=== PATIENT | male | born 1955 | race Caucasian/White ===

== ENCOUNTER 2016-11-01 22:33 | Observation (INO) ==
[2016-11-01 23:39] LABS: Basophils # 0.1 10*3/uL (0.0-0.2); Basophils % 0.6 % (0.0-0.8); Eosinophils # 0.2 10*3/uL (0.0-0.87); Hematocrit 38.5 VOL% (42.0-52.0); Hemoglobin 13.1 GM/DL (14.0-18.0); Immature Granulocytes % 0.5 %; Immature Granulocytes Absolute 0.05 #; Lymphocytes # 2.2 10*3/uL (1.4-4.0); Lymphocytes % 20.7 % (21.2-54.2); Mean Corpuscular Hemoglobin 27 PG (27-34); Mean Corpuscular Volume 79.5 FL (87-102); Mean Platelet Volume 10.4 FL (9.6-12.0); Monocytes # 0.8 10*3/uL (0.11-0.8); Neutrophils # 7.2 10*3/uL (1.4-7.4); Neutrophils % 68.2 % (38.7-73.9); Platelet Count 235 T/CUMM (130-400); Red Blood Count 4.84 MC/CUMM (3.8-5.5); Red Cell Distribution Width 15.9 % (9.3-17.3); White Blood Count 10.6 T/CUMM (4-12)
[2016-11-01 23:48] LABS: D-Dimer <= 0.5 MG/L FEU; PT Patient Result 10.4 SECS; Partial Thromboplastin Time 28.3 SECS (0-40)
[2016-11-01 23:54] LABS: Albumin 3.8 G/DL (3.4-5.0); Bilirubin,Total 0.5 MG/DL (0.2-1.0); CKMB % 1.1 %; Calcium 9.8 MG/DL (8.5-10.1); Magnesium 2.2 MG/DL (1.8-2.4); Osmolality,Calculated 289.8 MOS/KG (273-304); Total Protein 7.3 G/DL (6.4-8.3)
[2016-11-01 23:55] LABS: Troponin I Only 0.053 NG/ML (0.00-0.045)
--- NOTE | 2016-11-02 01:29 | Emergency Department Note ---
Arrival - Arrival Chief Complaint: Chest Pain Stated Complaint: chest pain ED Nursing Triage Note: C/C constant pain in left arm, sob, feels like heart is racing. Mode of Arrival: Ambulatory Source: Patient Time Seen by Provider: 11/01/16 23:08 - History of Present Illness HPI Narrative: Patient is a poor historian and has difficulty describing his symptoms. Around 930 tonight he started feeling like his heart was racing. He initially said that he felt short of breath, then said he did not feel short of breath, just anxious or panicked. He said he had chest pain then says it was not pain just a tight feeling or his heart racing. He did have some pain in his left shoulder. No nausea, vomiting or diaphoresis. All of this seemed to come and go. It is not clear how long the episodes last. He was asymptomatic when I saw him. The patient has a history of [place] 12-13 years ago. He had a cath at that time but did not get a stent. He had a nuclear stress test 1 year ago which he says was okay. He has a history of hypertension. 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 Allergies/Adverse Reactions: Allergies Allergy/AdvReac Type Severity Reaction Status Date / Time No Known Allergies Allergy Verified 11/01/16 22:52 Home Medications: Home Medications Medication Instructions Recorded Confirmed Type Amlodipine/Atorvastatin 1 each PO DAILY 12/21/15 02/17/16 History [Amlodipine-Atorvast 5-40 mg] Olmesartan/Hydrochlorothiazide 1 each PO DAILY 12/21/15 02/17/16 History [Benicar Hct 40-12.5 mg Tablet] Finasteride 5 mg PO DAILY 01/09/16 02/17/16 History Review of System - Review of System 12 point system: reviewed and no additional remarkable complaints except as stated - Review of System Constitutional: Absent: fever, weakness Head/Ears/Nose/Throat: Absent: nasal drainage Respiratory: Absent: cough Cardiovascular: Present: chest pain, palpitations. Absent: dyspnea on exertion , orthopnea, edema, syncope Gastrointestinal: Absent: abdominal pain, nausea, vomiting Musculoskeletal: Present: arm pain Medical,Surgical,& Family Hx - Medical History Cardio: History of: Hypertension, [place] (2001) Comment Only: Cardiovascular Problems (Dr. Jerez) HEENT: History of: Eye Problem Comment Only: Ear Problem (glasses) Genitourinary: History of: Prostate Problems (Metastatic prostate cancer.) Musculoskeletal: History of: Amputation, Back/Neck Problems (anklosisspondylysis ), Musculoskeletal Problems (arthritis) Other: History of: Cancer (Bone) - Surgical History Cardiac Surgeries: Sugical HX of: Cardiac Catheterization (12 or 13 years ago) Reproductive Surgeries: Surgical HX of;: Prostate Surgery, Vasectomy Orthopedic Surgeries: Surgical HX of;: Orthopedic Surgery (fusion) - Family History Family History: Reports;: Family Cancer, Family Hypertension Denies;: Family Anesthesia Reaction, Family Diabetes, Family Heart Disease, Family Psychiatric Problems, Family Stroke - Social History Smoking Status: Current every day smoker Frequency of Alcohol Use: Occasionally Type of Drug Use: None Exam Physical Examination: GENERAL: Alert. No acute distress. HEENT: Normocephalic and atraumatic. There is no nasal drainage. No pharyngeal erythema or exudate. NECK: Normal inspection. Supple. No lymphadenopathy or meningismus. LUNGS: No respiratory distress. Clear to auscultation bilaterally, no wheezes, rales or rhonchi. HEART: Regular rate and rhythm. ABDOMEN: Soft, nontender and nondistended with normoactive bowel sounds. BACK: Normal inspection. SKIN: Color normal. Warm and dry. EXTREMITIES: Nontender. Normal range of motion. No pedal edema. NEUROLOGICAL/PSYCHIATRIC: Alert and oriented -3 with normal mood and affect. Cranial nerves normal. No motor or sensory deficit. Vital Signs: Vital Signs Temperature 98.3 F 11/01/16 22:46 Pulse Rate 99 H 11/01/16 22:46 Respiratory Rate 18 11/01/16 23:27 Blood Pressure 189/96 11/01/16 22:46 O2 Sat by Pulse Oximetry 96 11/01/16 22:46 Course - Reevaluation(s) Reevaluation #1: Patient has remained stable in the ER and has been asymptomatic here. I suspect his symptoms are more anxiety related than cardiac, but he does have a history of [place] and cardiac risk factors. He will need to be admitted for observation and serial enzymes. I discussed patient with Dr. Shannan Post and will admit to Dr. Matta. Time: 01:40 Results - Labs CBC & BMP: 11/01/16 23:11 11/01/16 23:11 Lab Results: I have reviewed the patients labs Labs: Laboratory Tests 11/01/16 11/01/16 11/01/16 23:11 23:11 23:11 INR 1.0 D-Dimer, Quantitative <= 0.5 Total Bilirubin 0.50 AST 27 ALT 34 Alkaline Phosphatase 110 Total Creatine Kinase 492 H CK-MB (CK-2) 5.3 H CK and CKMB Interp 1.1 Troponin I 0.053 H B-Natriuretic Peptide < 2 L - Impressions Chest x-ray shows no acute abnormality. EKG showed a sinus rhythm at 93 with a PVC. Disposition Clinical Impression: Chest pain, Anxiety, Palpitations, Hypokalemia Case discussed with: patient, patient's family Disposition: Still a Patient Condition: Stable Time of Disposition: 01:36
[2016-11-02] MEDS ORDERED: ONDANSETRON 4 MG/2 ML VIAL IV PRN (02:57)
[2016-11-02] MEDS ORDERED: ACETAMINOPHEN 325 MG TABLET PO PRN (02:57)
[2016-11-02] MEDS ORDERED: MORPHINE 2 MG/1 ML SYRINGE IV PRN (02:57)
[2016-11-02] MEDS ORDERED: NITROGLYCERIN SL 0.4 MG TABLET SL PRN (02:57)
--- NOTE | 2016-11-02 07:26 | EKG Report ---
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
--- NOTE | 2016-11-02 07:56 | XRay Report ---
Exam: XR chest 1V portable Indication: Shortness of breath, History of prostate cancer Comparison study: None Findings: Cardiac silhouette is mildly enlarged. Mediastinal contours are within normal limits. There is no focal consolidation, pneumothorax or pleural effusion identified. Mild elevation left hemidiaphragm noted. There are areas of nonspecific sclerotic changes throughout the visualized osseous structures, possibly related to history of prostate cancer. Impression: Borderline cardiomegaly. Otherwise, no active disease. PROCEDURE INTERPRETED AT [facility] Final Report Signed by: Waqas Gee
--- NOTE | 2016-11-02 07:59 | EKG Report ---
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
[2016-11-02 08:10] LABS: Basophils # 0.1 10*3/uL (0.0-0.2); Basophils % 0.7 % (0.0-0.8); Eosinophils # 0.2 10*3/uL (0.0-0.87); Eosinophils % 1.5 % (0.00-10.9); Hematocrit 38.1 VOL% (42.0-52.0); Hemoglobin 13.3 GM/DL (14.0-18.0); Immature Granulocytes % 0.6 %; Immature Granulocytes Absolute 0.07 #; Lymphocytes % 17.1 % (21.2-54.2); Mean Corpuscular HGB Conc 34.9 GM/DL (32-36); Mean Corpuscular Hemoglobin 27 PG (27-34); Mean Corpuscular Volume 78.4 FL (87-102); Mean Platelet Volume 10.9 FL (9.6-12.0); Monocytes % 8.5 % (1.7-12.7); Neutrophils # 8.6 10*3/uL (1.4-7.4); Neutrophils % 71.6 % (38.7-73.9); Platelet Count 245 T/CUMM (130-400); Red Blood Count 4.86 MC/CUMM (3.8-5.5); Red Cell Distribution Width 15.9 % (9.3-17.3); White Blood Count 11.9 T/CUMM (4-12)
[2016-11-02 08:32] LABS: Calcium 9.3 MG/DL (8.5-10.1); Magnesium 2.3 MG/DL (1.8-2.4); Potassium 3.2 MMOL/L (3.5-5.1)
[2016-11-02 09:03] LABS: Free T4 (Free Thyroxine) 1.32 NG/DL (0.76-1.46); Thyroid Stimulating Hormone 0.66 uIU/ml (0.358-3.74)
--- NOTE | 2016-11-02 09:24 | Family Practice History&Phys ---
Assessment and Plan (1) Chest pain Status: Acute Assessment and plan: 11/02/2016. Admitted his initial set of vitals are negative. We are going to get cardiology to see him. He has been placed on aspirin Current Visit: Yes (2) Palpitations Status: Acute Assessment and plan: 11/02/2016: Sinus rhythm at this time. Current Visit: Yes History of Present Illness Chief complaint: Chest pain, fast heart rate History of present illness: Mr. Escobedo is a 60 year old male With a history of hypertension, cardiac disease with "heart attack" in approximately 2002. Had cath he is not had stents, stage IV prostate cancer receiving therapy for this, arthritis, ankylosing spondylitis. Somewhat of a poor historian however states that last night he went to bed at 8:00 got up because he felt uncomfortable in his chest and he sat down on his recliner and could not still get comfortable. He had a little bit of shortness of breath but he denied any nausea, vomiting or sweating. States that his left arm hurt slightly also but he states that this happens when he lays on his left side which was doing last night. States he worked hard yesterday, first of all mowing and weeding, then he drove to [facility] to get some home products, drove back and did some work on his house. At this time not having any pain is alert and oriented. Although does answer all questions he does not elaborate. Does have body habitus pendulous abdomen and certainly does not work out and exercise. Do not know his cholesterol history Home Medications Medication Instructions Recorded Confirmed Type Amlodipine/Atorvastatin 1 each PO DAILY 12/21/15 02/17/16 History [Amlodipine-Atorvast 5-40 mg] Olmesartan/Hydrochlorothiazide 1 each PO DAILY 12/21/15 02/17/16 History [Benicar Hct 40-12.5 mg Tablet] Finasteride 5 mg PO DAILY 01/09/16 02/17/16 History Allergies Allergy/AdvReac Type Severity Reaction Status Date / Time No Known Allergies Allergy Verified 11/01/16 22:52 12 point system: reviewed and no additional remarkable complaints except as stated (Those mentioned above in the history and physical) Medical,Surgical,& Family Hx - Medical History Cardio: History of: Hypertension, [place] (2001) Comment Only: Cardiovascular Problems (Dr. Jerez) HEENT: History of: Eye Problem Comment Only: Ear Problem (glasses) Genitourinary: History of: Prostate Problems (Metastatic prostate cancer.) Musculoskeletal: History of: Amputation, Back/Neck Problems (anklosisspondylysis ), Musculoskeletal Problems (arthritis) Other: History of: Cancer (Bone) - Surgical History Cardiac Surgeries: Sugical HX of: Cardiac Catheterization (12 or 13 years ago) Reproductive Surgeries: Surgical HX of;: Prostate Surgery, Vasectomy Orthopedic Surgeries: Surgical HX of;: Orthopedic Surgery (fusion) - Family History Family History: Reports;: Family Cancer, Family Hypertension Denies;: Family Anesthesia Reaction, Family Diabetes, Family Heart Disease, Family Psychiatric Problems, Family Stroke - Social History Smoking Status: Current every day smoker Frequency of Alcohol Use: Occasionally Type of Drug Use: None Exam - Constitutional Vitals: Period Temp Pulse Resp BP Sys/Monae Pulse Ox Last 24 Hr 97.8 F-99.3 F 84-99 16-20 149-189/69-96 21-96 Exam: Generally pendulous person slight moderately obese. Is alert and oriented and in no acute distress HEENT essentially negative neck is supple trachea midline Cardiovascular rate is regular no gallop or rub there is 1/6 systolic ejection murmur Lungs few basilar rales but no cough and there are no specific rhonchi Abdomen soft nondistended as mentioned pendulous moderately obese Skin no lesions good turgor Results - Labs CBC & BMP: 11/02/16 07:04 11/02/16 07:07
--- NOTE | 2016-11-02 11:09 | Cardiology Consult Note ---
<Bailey Muro E - Last Filed: 11/02/16 14:04> Assessment and Plan - Time spent with patient Time spent with patient: Greater than 30 minutes (1) CAD (coronary artery disease) Status: Chronic Assessment and plan: SEE PLAN OF CARE LISTED BELOW Current Visit: Yes Qualifiers: Coronary Disease-Associated Artery/Lesion type: [place] artery [place] vs. 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 Assessment and plan: SEE PLAN OF CARE LISTED BELOW Current Visit: Yes (4) Obesity (BMI 30.0-34.9) Status: Chronic Assessment and plan: SEE PLAN OF CARE LISTED BELOW Current Visit: Yes (5) Chest pain Status: Acute Assessment and plan: SEE PLAN OF CARE LISTED BELOW Current Visit: Yes (6) Hypertension Status: Chronic Assessment and plan: SEE PLAN OF CARE LISTED BELOW Current Visit: No History of Present Illness - Data of Consult Patient: known to practice within the last 3 years Consult date: 11/02/16 Requesting Physician: Spencer Matta Primary care physician: Spencer Matta - Consult Narrative Reason for consult: chest pain History of 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 Escobedo, 60WM, routinely followed by Dr. Mcdaniel. Last seen in cardiology clinic October 13, 2016. Risk factors include: Known coronary artery disease, hypertension, dyslipidemia. (NSTEMI July 2004 with PCI to LAD, PCI to circumflex). History of stage IV prostate cancer (on Lupron shots), metastasis to bone. Is followed by Dr. Jarret Leavitt, does not have an oncologist. Patient reports he is normally very active. He works aggressively in his yard and can perform these activities without chest pain, heaviness or tightness. Last evening, around 10:30 PM, patient was awakened with discomfort in the center of his chest. He finds it difficult to further elaborate but states he simply just could not get comfortable. He believes he may have been mildly short of breath. Left arm was hurting but when he moved off of the left arm that left arm pain resolved. He has mild soreness with movement today. This lasted approximately 30 minutes, resolved on its own and has not returned. He is unable to write the discomfort on a scale of 1-10. He can identify no aggravating nor any alleviating factors. Patient reports that activity does not re-create his chest pain. Patient has had some swelling of his right lower extremity more so than the left lower extremity over the past several weeks. Dr. Mcdaniel had ordered a venous ultrasound in September 2016 however, I cannot find a report for this and the patient does not remember having this performed. I will reorder venous ultrasound this morning. Patient's cardiac biomarkers are negative, EKG is unremarkable. Again, patient is normally very active and in fact did a lot of mowing and weed eating yesterday without complaints of angina. I will order an echocardiogram today. If there is a newly discovered cardiomyopathy, would consider further workup. Otherwise, may be considered for outpatient stress testing at discharge. It is unclear the prognosis of his prostate cancer which has metastasized to bone. Patient may be best referred to an oncologist and I will will defer to the attending to make referral as indicated. Certainly, advanced cancer with poor prognosis would affect the approach to treating CAD and this may need to be addressed outpatient. I will further discuss with Dr. Hastings and await additional recommendations. ASSESSMENT/PLAN: 1. CHEST PAIN - cardiac biomarkers negative, EKG unremarkable. If echo reveals no significant cardiomyopathy, outpatient stress test recommended. However, given his stage IV prostate cancer with metastasis to the bone , would need to further identify prognosis and treatment plan prior to scheduling any type of invasive cardiac procedure (if needed) in order to better delineate a plan of care. 2. KNOWN CAD - history of PCI to LAD, PCI to circumflex July 2004. 3. HYPERTENSION - usually well controlled 4. DYSLIPIDEMIA - continue lipid-lowering agent (on Amlodipine/Atorvastatin) 5. OBESITY - dietary counseling 6. PROSTATE CANCER, STAGE IV - Dr. Leavitt' manages 7. METASTASIS TO BONE - defer management to attending 8. RLE EDEMA - venous ultrasound bilateral lower extremities today to rule out DVT. CC: Spencer Matta, DO - Home Medications and Allergies Home Medications: Home Medications Medication Instructions Recorded Confirmed Type Amlodipine/Atorvastatin 1 each PO DAILY 12/21/15 11/02/16 History [Amlodipine-Atorvast 5-40 mg] Olmesartan/Hydrochlorothiazide 1 each PO DAILY 12/21/15 11/02/16 History [Benicar Hct 40-12.5 mg Tablet] Finasteride 5 mg PO DAILY 01/09/16 11/02/16 History Calcium (Carb)/Vit D 600-400 1 tablet PO DAILY 11/02/16 11/02/16 History [Caltrate 600 + D] Allergies/Adverse Reactions: Allergies Allergy/AdvReac Type Severity Reaction Status Date / Time No Known Allergies Allergy Verified 11/01/16 22:52 Review of systems: REVIEW OF SYSTEMS: - Constitutional Constitutional: Denies fatigue. Absent: syncope, anorexia, night sweats - EENT Eyes: Absent: blurry vision, loss of vision, diplopia Ears: Absent: decreased hearing, ear pain, ear discharge - Cardiovascular Cardiovascular: Present: chest discomfort. Denies chest pain with activity, denies shortness of breath with activity. Recent right lower extremity edema greater than left lower extremity edema. Occasional palpitations. - Respiratory Respiratory: Denies CRISTINA, cough. Absent: wheezing, hemoptysis, change in phlegm color - Gastrointestinal Gastrointestinal: Denies: constipation. Absent: Abdominal pain, hematemesis, hematochezia, melena, change in bowel habits, nausea - Genitourinary Genitourinary: Absent: difficulty urinating, dysuria, urinary hesitancy, flank pain - Musculoskeletal Musculoskeletal: Present: back pain, bilateral hand pain. Absent: joint swelling, muscle cramps, muscle weakness - Neurological Neurological: Present: normal gait without frequent falls. Absent: dizziness, hemiparesis - Psychiatric Psychiatric: Absent: anxiety, depression, difficulty concentrating - Endocrine Endocrine: . Absent: cold intolerance, heat intolerance, polyuria, polyphagia, polydipsia - Hematologic/Lymphatic Hematologic/Lymphatic: Present: easy bruising. Absent: easy bleeding -Integumentary Integumentary: Absent: lesions, rashes, skin breakdown Medical,Surgical,& Family Hx - Medical History Cardio: History of: Hypertension, [place] (2001) Comment Only: Cardiovascular Problems (Dr. Mcdaniel) HEENT: History of: Eye Problem Comment Only: Ear Problem (glasses) Genitourinary: History of: Prostate Problems (Metastatic prostate cancer.) Musculoskeletal: History of: Amputation, Back/Neck Problems (anklosisspondylysis ), Musculoskeletal Problems (arthritis) Other: History of: Cancer (Bone) - Surgical History Cardiac Surgeries: Sugical HX of: Cardiac Catheterization (12 or 13 years ago) Reproductive Surgeries: Surgical HX of;: Prostate Surgery, Vasectomy Orthopedic Surgeries: Surgical HX of;: Orthopedic Surgery (fusion) - Family History Family History: Reports;: Family Cancer, Family Hypertension Denies;: Family Anesthesia Reaction, Family Diabetes, Family Heart Disease, Family Psychiatric Problems, Family Stroke - Social History Smoking Status: Current every day smoker Frequency of Alcohol Use: Occasionally Type of Drug Use: None Physical Examination Vital Signs Temp Pulse Resp BP Pulse Ox 98.3 F 97 H 18 189/96 96 11/01/16 22:46 11/01/16 22:46 11/01/16 22:46 11/01/16 22:46 11/01/16 22:46 Exam: General: [Appears well with no apparent distress.] [Pleasant and cooperative. ] [Appears comfortable.] HEENT: [PERRL, normocephalic, atraumatic. Mucous membranes moist. No jaundice noted. Conjunctiva moist and clear, sclerae anicteric] Neck: No JVD/HJR, no thyromegaly or lymphadenopathy noted. No carotid bruit appreciated Cardiac: [Regular rate and rhythm.] [No obvious murmur rub or gallop.] Lungs: [Clear to auscultation without accessory muscle use to assist the respiratory pattern.] Oxygen in use via nasal cannula Abdomen: Soft, bowel sounds normoactive. Nontender and nondistended. No abdominal bruit or thrill noted. No masses noted. Musculoskeletal: No fluid collection. Decreased range of motion is noted. Extremities: No clubbing, cyanosis noted. [Trace right lower extremity edema noted.] Upper extremity pulses 2+. Lower extremity pulses 2+. Capillary refill less than 3 seconds. Skin: No unusual lesions or rashes. No skin breakdown appreciated. Neuro: Awake, alert and oriented 3. Moves all extremities well without hemiparesis or paralysis. No essential tremor is appreciated. Result/EKG - Labs CBC & BMP: 11/02/16 07:04 11/02/16 07:07 Lab Results: I have reviewed the past 24 hour labs Labs: Laboratory Results - last 24 hr 11/01/16 11/01/16 11/01/16 23:11 23:11 23:11 WBC RBC Hgb Hct MCV MCH MCHC RDW Plt Count MPV Neut % (Auto) Lymph % (Auto) [place] % (Auto) Eos % (Auto) Baso % (Auto) Neut # (Auto) Lymph # (Auto) [place] # (Auto) Eos # (Auto) Baso # (Auto) Immature Gran % Nucleated RBC % Immature Gran # Nucleated RBCs # INR 1.0 PT Patient/Control Mix 10.4 D-Dimer, Quantitative <= 0.5 Circ Anticoag PTT 28.3 Sodium 144 Potassium 3.0 L Chloride 105 Carbon Dioxide 26 Anion Gap 16.0 H BUN 20 H Creatinine 1.10 GFR Calculation 82 BUN/Creatinine Ratio 18.00 Glucose 111 H Calculated Osmolality 289.8 Calcium 9.8 Magnesium 2.2 Total Bilirubin 0.50 AST 27 ALT 34 Alkaline Phosphatase 110 Total Creatine Kinase 492 H CK-MB (CK-2) 5.3 H CK and CKMB Interp 1.1 Troponin I 0.053 H B-Natriuretic Peptide < 2 L Total Protein 7.3 Albumin 3.8 Globulin 3.5 Albumin/Globulin Ratio 1.0 L Free T4 TSH 3rd Generation 11/01/16 11/02/16 11/02/16 23:11 04:15 07:04 WBC 10.6 11.9 RBC 4.84 4.86 Hgb 13.1 L 13.3 L Hct 38.5 L 38.1 L MCV 79.5 L 78.4 L MCH 27 27 MCHC 34.0 34.9 RDW 15.9 15.9 Plt Count 235 245 MPV 10.4 10.9 Neut % (Auto) 68.2 71.6 Lymph % (Auto) 20.7 L 17.1 L [place] % (Auto) 8.0 8.5 Eos % (Auto) 2.0 1.5 Baso % (Auto) 0.6 0.7 Neut # (Auto) 7.2 8.6 H Lymph # (Auto) 2.2 2.0 [place] # (Auto) 0.8 1.0 H Eos # (Auto) 0.2 0.2 Baso # (Auto) 0.1 0.1 Immature Gran % 0.5 0.6 Nucleated RBC % 0.0 0.0 Immature Gran # 0.05 0.07 Nucleated RBCs # 0.00 0.00 INR PT Patient/Control Mix D-Dimer, Quantitative Circ Anticoag PTT Sodium Potassium Chloride Carbon Dioxide Anion Gap BUN Creatinine GFR Calculation BUN/Creatinine Ratio Glucose Calculated Osmolality Calcium Magnesium Total Bilirubin AST ALT Alkaline Phosphatase Total Creatine Kinase CK-MB (CK-2) CK and CKMB Interp Troponin I 0.044 B-Natriuretic Peptide Total Protein Albumin Globulin Albumin/Globulin Ratio Free T4 TSH 3rd Generation 11/02/16 11/02/16 11/02/16 07:07 07:07 07:07 WBC RBC Hgb Hct MCV MCH MCHC RDW Plt Count MPV Neut % (Auto) Lymph % (Auto) [place] % (Auto) Eos % (Auto) Baso % (Auto) Neut # (Auto) Lymph # (Auto) [place] # (Auto) Eos # (Auto) Baso # (Auto) Immature Gran % Nucleated RBC % Immature Gran # Nucleated RBCs # INR PT Patient/Control Mix D-Dimer, Quantitative Circ Anticoag PTT Sodium 143 Potassium 3.2 L Chloride 106 Carbon Dioxide 26 Anion Gap 14.2 BUN 17 Creatinine 1.00 GFR Calculation 93 BUN/Creatinine Ratio 17.00 Glucose 107 H Calculated Osmolality 286.0 Calcium 9.3 Magnesium 2.3 Total Bilirubin AST ALT Alkaline Phosphatase Total Creatine Kinase CK-MB (CK-2) CK and CKMB Interp Troponin I 0.053 H D B-Natriuretic Peptide Total Protein Albumin Globulin Albumin/Globulin Ratio Free T4 1.32 TSH 3rd Generation 0.660 - Diagnostic Findings Procedure: Chest x-ray: report reviewed by me, Ultrasound: pending (Venous ultrasound BLE) - EKG EKG results: interpreted by me EKG shows: sinus rhythm <Can Hastings - Last Filed: 11/02/16 15:52> History of Present Illness - Consult Narrative History of present illness: Mr. Escobedo is a 60 year old male who presents with atypical chest pain. He has a remote history of CAD and I think the best approach is going to be outpatient screening for underlying occlusive coronary disease. I do not get anything on exam or by history that would suggest that this is unstable anginal chest pain. We will will await further troponin evaluation and likely discharged tomorrow. He obviously needs evaluation for what sounds like fairly widely metastatic prostate cancer. I have discussed in detail the particulars of this case and I have examined the patient and reviewed the patient's chart both current and old. I was directly involved in the patient's evaluation and management and I completely agree with Bailey Muro NP regarding this patient's evaluation and treatment plan. CC: Spencer Matta, DO Physical Examination Vital Signs Temp Pulse Resp BP Pulse Ox 98.3 F 97 H 18 189/96 96 11/01/16 22:46 11/01/16 22:46 11/01/16 22:46 11/01/16 22:46 11/01/16 22:46 Result/EKG - Labs CBC & BMP: 11/02/16 07:04 11/02/16 07:07 Labs: Laboratory Results - last 24 hr 11/01/16 11/01/16 11/01/16 23:11 23:11 23:11 WBC RBC Hgb Hct MCV MCH MCHC RDW Plt Count MPV Neut % (Auto) Lymph % (Auto) [place] % (Auto) Eos % (Auto) Baso % (Auto) Neut # (Auto) Lymph # (Auto) [place] # (Auto) Eos # (Auto) Baso # (Auto) Immature Gran % Nucleated RBC % Immature Gran # Nucleated RBCs # INR 1.0 PT Patient/Control Mix 10.4 D-Dimer, Quantitative <= 0.5 Circ Anticoag PTT 28.3 Sodium 144 Potassium 3.0 L Chloride 105 Carbon Dioxide 26 Anion Gap 16.0 H BUN 20 H Creatinine 1.10 GFR Calculation 82 BUN/Creatinine Ratio 18.00 Glucose 111 H Calculated Osmolality 289.8 Calcium 9.8 Magnesium 2.2 Total Bilirubin 0.50 AST 27 ALT 34 Alkaline Phosphatase 110 Total Creatine Kinase 492 H CK-MB (CK-2) 5.3 H CK and CKMB Interp 1.1 Troponin I 0.053 H B-Natriuretic Peptide < 2 L Total Protein 7.3 Albumin 3.8 Globulin 3.5 Albumin/Globulin Ratio 1.0 L Triglycerides Cholesterol LDL Cholesterol VLDL Cholesterol HDL Cholesterol Heart Disease Risk Ratio Free T4 TSH 3rd Generation 11/01/16 11/02/16 11/02/16 23:11 04:15 07:04 WBC 10.6 11.9 RBC 4.84 4.86 Hgb 13.1 L 13.3 L Hct 38.5 L 38.1 L MCV 79.5 L 78.4 L MCH 27 27 MCHC 34.0 34.9 RDW 15.9 15.9 Plt Count 235 245 MPV 10.4 10.9 Neut % (Auto) 68.2 71.6 Lymph % (Auto) 20.7 L 17.1 L [place] % (Auto) 8.0 8.5 Eos % (Auto) 2.0 1.5 Baso % (Auto) 0.6 0.7 Neut # (Auto) 7.2 8.6 H Lymph # (Auto) 2.2 2.0 [place] # (Auto) 0.8 1.0 H Eos # (Auto) 0.2 0.2 Baso # (Auto) 0.1 0.1 Immature Gran % 0.5 0.6 Nucleated RBC % 0.0 0.0 Immature Gran # 0.05 0.07 Nucleated RBCs # 0.00 0.00 INR PT Patient/Control Mix D-Dimer, Quantitative Circ Anticoag PTT Sodium Potassium Chloride Carbon Dioxide Anion Gap BUN Creatinine GFR Calculation BUN/Creatinine Ratio Glucose Calculated Osmolality Calcium Magnesium Total Bilirubin AST ALT Alkaline Phosphatase Total Creatine Kinase CK-MB (CK-2) CK and CKMB Interp Troponin I 0.044 B-Natriuretic Peptide Total Protein Albumin Globulin Albumin/Globulin Ratio Triglycerides Cholesterol LDL Cholesterol VLDL Cholesterol HDL Cholesterol Heart Disease Risk Ratio Free T4 TSH 3rd Generation 11/02/16 11/02/16 11/02/16 07:07 07:07 07:07 WBC RBC Hgb Hct MCV MCH MCHC RDW Plt Count MPV Neut % (Auto) Lymph % (Auto) [place] % (Auto) Eos % (Auto) Baso % (Auto) Neut # (Auto) Lymph # (Auto) [place] # (Auto) Eos # (Auto) Baso # (Auto) Immature Gran % Nucleated RBC % Immature Gran # Nucleated RBCs # INR PT Patient/Control Mix D-Dimer, Quantitative Circ Anticoag PTT Sodium 143 Potassium 3.2 L Chloride 106 Carbon Dioxide 26 Anion Gap 14.2 BUN 17 Creatinine 1.00 GFR Calculation 93 BUN/Creatinine Ratio 17.00 Glucose 107 H Calculated Osmolality 286.0 Calcium 9.3 Magnesium 2.3 Total Bilirubin AST ALT Alkaline Phosphatase Total Creatine Kinase CK-MB (CK-2) CK and CKMB Interp Troponin I 0.053 H D B-Natriuretic Peptide Total Protein Albumin Globulin Albumin/Globulin Ratio Triglycerides Cholesterol LDL Cholesterol VLDL Cholesterol HDL Cholesterol Heart Disease Risk Ratio Free T4 1.32 TSH 3rd Generation 0.660 11/02/16 11/02/16 11:17 11:17 WBC RBC Hgb Hct MCV MCH MCHC RDW Plt Count MPV Neut % (Auto) Lymph % (Auto) [place] % (Auto) Eos % (Auto) Baso % (Auto) Neut # (Auto) Lymph # (Auto) [place] # (Auto) Eos # (Auto) Baso # (Auto) Immature Gran % Nucleated RBC % Immature Gran # Nucleated RBCs # INR PT Patient/Control Mix D-Dimer, Quantitative Circ Anticoag PTT Sodium Potassium Chloride Carbon Dioxide Anion Gap BUN Creatinine GFR Calculation BUN/Creatinine Ratio Glucose Calculated Osmolality Calcium Magnesium Total Bilirubin AST ALT Alkaline Phosphatase Total Creatine Kinase 312 H D CK-MB (CK-2) 2.2 CK and CKMB Interp Troponin I 0.043 B-Natriuretic Peptide Total Protein Albumin Globulin Albumin/Globulin Ratio Triglycerides 152 H Cholesterol 139 LDL Cholesterol 72.0 VLDL Cholesterol 30.4 HDL Cholesterol 55 Heart Disease Risk Ratio 2.53 Free T4 TSH 3rd Generation
[2016-11-02] MEDS: DOCUSATE SODIUM 100 MG CAPSULE PO SCH ×2 (11:57→20:35)
[2016-11-02] MEDS: ASPIRIN EC 81 MG TABLET PO SCH (11:57)
[2016-11-02] MEDS: PANTOPRAZOLE 40 MG TABLET PO SCH (11:57)
[2016-11-02 11:59] LABS: Risk Ratio 2.53; VLDL CHOLESTEROL 30.4 MG/DL
[2016-11-02 12:01] LABS: Troponin I Only 0.043 NG/ML (0.00-0.045)
--- NOTE | 2016-11-02 15:10 | Ultrasound Report ---
Exam: US venous doppler LE BI Indication: Right lower extremity edema with left lower extremity edema also present Date: 11/02/2016 2:02 PM Comparison 04/14/2015 Findings: Grayscale color flow duplex/Doppler imaging and spectral analysis waveform imaging was performed with real-time ultrasound with image stored and captured. The right common femoral, superficial femoral, popliteal saphenous veins are patent with normal augmentation and compression. There is no evidence of popliteal or Tom's cyst. Normal wave form analysis present. Normal color flow The left common femoral, superficial femoral, popliteal saphenous veins are patent with normal augmentation and compression. There is no evidence of popliteal or Tom's cyst. Normal wave form analysis present. Normal color flow Impression: 1. No DVT PROCEDURE INTERPRETED AT [facility] DEPARTMENT OF RADIOLOGY Final Report Signed by: Dr. Carlito Brown
[2016-11-02] MEDS: POTASSIUM CHLORIDE 20 MEQ TABLET PO SCH (15:29)
[2016-11-02 20:51] LABS: Troponin I Only 0.035 NG/ML (0.00-0.045)
[2016-11-03 04:46] LABS: Basophils # 0.1 10*3/uL (0.0-0.2); Basophils % 0.7 % (0.0-0.8); Eosinophils # 0.2 10*3/uL (0.0-0.87); Eosinophils % 1.8 % (0.00-10.9); Hematocrit 35.6 VOL% (42.0-52.0); Hemoglobin 12.1 GM/DL (14.0-18.0); Immature Granulocytes % 0.5 %; Immature Granulocytes Absolute 0.05 #; Lymphocytes # 2.8 10*3/uL (1.4-4.0); Lymphocytes % 28.8 % (21.2-54.2); Mean Corpuscular Hemoglobin 27 PG (27-34); Mean Corpuscular Volume 79.8 FL (87-102); Mean Platelet Volume 10.6 FL (9.6-12.0); Monocytes # 0.8 10*3/uL (0.11-0.8); Monocytes % 8.5 % (1.7-12.7); Neutrophils # 5.8 10*3/uL (1.4-7.4); Neutrophils % 59.7 % (38.7-73.9); Platelet Count 211 T/CUMM (130-400); Red Blood Count 4.46 MC/CUMM (3.8-5.5); Red Cell Distribution Width 15.9 % (9.3-17.3); White Blood Count 9.7 T/CUMM (4-12)
[2016-11-03 05:15] LABS: Calcium 9.3 MG/DL (8.5-10.1); Magnesium 2.5 MG/DL (1.8-2.4); Osmolality,Calculated 289.8 MOS/KG (273-304); Potassium 3.4 MMOL/L (3.5-5.1)
--- NOTE | 2016-11-03 07:40 | EKG Report ---
Stationary ECG Study [facility] Test Date: 11/03/2016 7:41:49 AM Pat Name: CHAYA CUELLAR Department: Room: 276 Gender: M Net Manager: MILA : 1955 Requested by: Carlito Tello Order Number: [id number] Lety MD: FAISAL VILLAFANA Intervals [place] Rate: 80 P: 66 [place]: 163 QRS: 12 QRSD: 102 T: 56 QT: 410 QTc: 446 Interpretive Statements SINUS RHYTHM Electronically Signed On 11-03-16 09:29:32 CDT by FAISAL VILLAFANA [email or web address]
[2016-11-03] MEDS: ASPIRIN EC 81 MG TABLET PO SCH (08:29)
[2016-11-03] MEDS: PANTOPRAZOLE 40 MG TABLET PO SCH (08:29)
[2016-11-03] MEDS: POTASSIUM CHLORIDE 20 MEQ TABLET PO SCH (08:30)
[2016-11-03] MEDS: DOCUSATE SODIUM 100 MG CAPSULE PO SCH (08:30)
[2016-11-03] MEDS ORDERED: CALCIUM (CARBONATE)/VITAMIN D 600 MG-400 UNIT TABLET PO SCH (09:00)
[2016-11-03] MEDS ORDERED: ATORVASTATIN 40 MG TABLET PO SCH (09:00)
[2016-11-03] MEDS ORDERED: hydroCHLOROthiazide 12.5 MG CAPSULE PO SCH (09:00)
[2016-11-03] MEDS ORDERED: OLMESARTAN 20 MG TABLET PO SCH (09:00)
[2016-11-03] MEDS ORDERED: FINASTERIDE 5 MG TABLET PO SCH (09:00)
[2016-11-03] MEDS ORDERED: amLODIPine 10 MG TABLET PO SCH (09:00)
--- NOTE | 2016-11-03 09:14 | ECHO Report ---
Greg Escobedo Exam Date: 11/02/2016 12:44 Referring Physician: Technologist: Fely May Age: 60 Ht (in): 66 Wt (lb): 201 Gender: M Exam Location: [facility] Echo Indications: BPH, chest pain, palp, HTN, old [place] 2001, Hx. Bone CA, hypokalemia BP: 149 / 78 HR: 84 Rhythm: Sinus Technical Quality: Fair IMPRESSIONS Normal left ventricular cavity size. Mild concentric left ventricular hypertrophy. Left ventricular ejection fraction is estimated at 50-55 %. Normal right ventricular size. Normal right atrial size. Normal left atrial size. Mild mitral valve sclerosis. Trace mitral valve regurgitation. Mild aortic valve sclerosis without stenosis or regurgitation. Morphologically normal tricuspid valve. Trace tricuspid valve regurgitation. Morphologically normal pulmonic valve. Echo free space anterior to the right ventricle likely represents a fat pad. Normal size aortic root and proximal ascending aorta. MEASUREMENTS (Male / Female) Normal Values 2D ECHO LV Diastolic Diameter PLAX 3.8 cm 4.2 - 5.9 / 3.9 - 5.3 cm LV Systolic Diameter PLAX 2.0 cm LV Fractional Shortening PLAX 48.1 % IVS Diastolic Thickness 1.7 cm 0.6 - 1.0 / 0.6 - 0.9 cm LVPW Diastolic Thickness 1.6 cm 0.6 - 1.0 / 0.6 - 0.9 cm RV Internal Dim ED PLAX 2.9 cm Aortic Root Diameter 2.7 cm LA Systolic Diameter LX 3.9 cm 3.0 - 4.0 / 2.7 - 3.8 cm DOPPLER TR Peak Velocity 146.0 cm/s TR Peak Gradient 8.5 mmHg FINDINGS Left Ventricle Normal left ventricular cavity size. Mild concentric left ventricular hypertrophy.left ventricular ejection fraction is estimated at 50-55 %. Right Ventricle Normal right ventricular size. Right Atrium Normal right atrial size. Left Atrium Normal left atrial size. Mitral Valve Mild mitral valve sclerosis. Trace mitral valve regurgitation. Aortic Valve Mild aortic valve sclerosis without stenosis or regurgitation. Tricuspid Valve Morphologically normal tricuspid valve. Trace tricuspid valve regurgitation. Pulmonic Valve Morphologically normal pulmonic valve. Pericardium Echo free space anterior to the right ventricle likely represents a fat pad. Aorta Normal size aortic root and proximal ascending aorta. Can Hastings MD (Electronically Signed) Final Date: 03 November 2016 09:12
--- NOTE | 2016-11-03 11:19 | Cardiology Progress Note ---
<Bailey Muro E - Last Filed: 11/03/16 13:22> Assessment and Plan - Time spent with patient Time spent with patient: Greater than 30 minutes (Venous ultrasound) (1) CAD (coronary artery disease) Status: Chronic Assessment and plan: SEE PLAN OF CARE LISTED BELOW Current Visit: Yes Qualifiers: Coronary Disease-Associated Artery/Lesion type: [place] artery [place] vs. transplanted heart: [place] heart (2) Dyslipidemia Status: Chronic Assessment and plan: SEE PLAN OF CARE LISTED BELOW Current Visit: Yes (3) Prostate cancer metastatic to bone Status: Chronic Assessment and plan: SEE PLAN OF CARE LISTED BELOW Current Visit: Yes (4) Obesity (BMI 30.0-34.9) Status: Chronic Assessment and plan: SEE PLAN OF CARE LISTED BELOW Current Visit: Yes (5) Chest pain Status: Acute Assessment and plan: SEE PLAN OF CARE LISTED BELOW Current Visit: Yes (6) Hypertension Status: Chronic Assessment and plan: SEE PLAN OF CARE LISTED BELOW Current Visit: No Cardiology - PN: Subj Interval history: RODBUSTER: DR. RODRIGUEZ Mr. Escobedo, 60WM, routinely followed by Dr. Rodriguez. Last seen in cardiology clinic October 13, 2016. Risk factors include: Known coronary artery disease, hypertension, dyslipidemia. (NSTEMI July 2004 with PCI to LAD, PCI to circumflex). History of stage IV prostate cancer (on Lupron shots), metastasis to bone. Is followed by Dr. Jarret Leavitt, does not have an oncologist. Patient was admitted for chest pain. His cardiac biomarkers remained negative. EKG was unrevealing. Echocardiogram revealed EF 50-55%, no significant valvular abnormality. Patient's chest pain occurred only once, prior to admission and he has been ambulating without chest pain, heaviness, tightness or shortness of breath. At this point, from a cardiology standpoint, he is stable for discharge and will defer to attending. He will be scheduled for outpatient Cardiolite stress test within 1-2 weeks. One week after stress test , he will be given an appointment to see Dr. Rodriguez to discuss results and symptoms. Will defer to attending further workup regarding his bone metastasis as patient is interested in seeing an oncologist. Will further discuss with Dr. Hastings and await additional recommendations. ASSESSMENT/PLAN: 1. CHEST PAIN - cardiac biomarkers negative, EKG unremarkable. Echocardiogram revealed no significant cardiomyopathy, outpatient stress testing recommended. However, given his stage IV prostate cancer with metastasis to the bone, would need to further identify prognosis and treatment plan prior to scheduling any type of invasive cardiac procedure (if needed) in order to better delineate a plan of care. 2. KNOWN CAD - history of PCI to LAD, PCI to circumflex July 2004. 3. HYPERTENSION - usually well controlled 4. DYSLIPIDEMIA - continue lipid-lowering agent (on Amlodipine/Atorvastatin) 5. OBESITY - dietary counseling 6. PROSTATE CANCER, STAGE IV - Dr. Leavitt' manages 7. METASTASIS TO BONE - defer management to attending 8. RLE EDEMA - resolved. Venous ultrasound reveals no evidence of DVT. Exam (Progress Note) - Constitutional Vitals: Period Temp Pulse Resp BP Sys/Monae Pulse Ox Last 24 Hr 98.1 F-100.9 F 72-89 16-20 109-168/64-96 93-98 Exam: General: [Appears well with no apparent distress.] [Pleasant and cooperative. ] [Appears comfortable.] HEENT: [PERRL, normocephalic, atraumatic. Mucous membranes moist. No jaundice noted. Conjunctiva moist and clear, sclerae anicteric] Neck: No JVD/HJR, no thyromegaly or lymphadenopathy noted. No carotid bruit appreciated Cardiac: [Regular rate and rhythm.] [No murmur rub or gallop.] Lungs: [Clear to auscultation without accessory muscle use to assist the respiratory pattern.] Not requiring oxygen Abdomen: Soft, bowel sounds normoactive. Nontender and nondistended. No abdominal bruit or thrill noted. No masses noted. Musculoskeletal: No fluid collection. Decreased range of motion is noted. Extremities: No clubbing, cyanosis noted. [ No edema noted.] Upper extremity pulses 2+. Lower extremity pulses 2+. Capillary refill less than 3 seconds. Skin: No unusual lesions or rashes. No skin breakdown appreciated. Neuro: Awake, alert and oriented 3. Moves all extremities well without hemiparesis or paralysis. No essential tremor is appreciated. Result/EKG - Labs CBC & BMP: 11/03/16 04:15 11/03/16 04:16 Lab Results: I have reviewed the past 24 hour labs Labs: Laboratory Results - last 24 hr 11/02/16 11/02/16 11/02/16 11:17 11:17 19:54 WBC RBC Hgb Hct MCV MCH MCHC RDW Plt Count MPV Neut % (Auto) Lymph % (Auto) [place] % (Auto) Eos % (Auto) Baso % (Auto) Neut # (Auto) Lymph # (Auto) [place] # (Auto) Eos # (Auto) Baso # (Auto) Immature Gran % Nucleated RBC % Immature Gran # Nucleated RBCs # Sodium Potassium Chloride Carbon Dioxide Anion Gap BUN Creatinine GFR Calculation BUN/Creatinine Ratio Glucose Calculated Osmolality Calcium Magnesium Total Creatine Kinase 312 H D 206 D CK-MB (CK-2) 2.2 1.2 Troponin I 0.043 0.035 Triglycerides 152 H Cholesterol 139 LDL Cholesterol 72.0 VLDL Cholesterol 30.4 HDL Cholesterol 55 Heart Disease Risk Ratio 2.53 11/03/16 11/03/16 04:15 04:16 WBC 9.7 RBC 4.46 Hgb 12.1 L Hct 35.6 L MCV 79.8 L MCH 27 MCHC 34.0 RDW 15.9 Plt Count 211 MPV 10.6 Neut % (Auto) 59.7 Lymph % (Auto) 28.8 [place] % (Auto) 8.5 Eos % (Auto) 1.8 Baso % (Auto) 0.7 Neut # (Auto) 5.8 Lymph # (Auto) 2.8 [place] # (Auto) 0.8 Eos # (Auto) 0.2 Baso # (Auto) 0.1 Immature Gran % 0.5 Nucleated RBC % 0.0 Immature Gran # 0.05 Nucleated RBCs # 0.00 Sodium 144 Potassium 3.4 L Chloride 107 Carbon Dioxide 27 Anion Gap 13.4 BUN 25 H Creatinine 1.10 GFR Calculation 83 BUN/Creatinine Ratio 22.00 H Glucose 101 Calculated Osmolality 289.8 Calcium 9.3 Magnesium 2.5 H Total Creatine Kinase CK-MB (CK-2) Troponin I Triglycerides Cholesterol LDL Cholesterol VLDL Cholesterol HDL Cholesterol Heart Disease Risk Ratio - Diagnostic Findings Procedure: Chest x-ray: report reviewed by me, Ultrasound: report reviewed by me - EKG EKG results: interpreted by me EKG shows: sinus rhythm Specialty Discharge - Follow Up or Referrals Follow up with: Ton Rodriguez MD [Physician] - (stress test on 11/10/16 at 8:[address] rodriguez on 11/17/16 at 3:20 at [facility] nothing to eat or drink after midnight before stress test and no coffee for 24 hours before stress test) Spencer Matta, [Primary Care Provider] - (11/10/2016 1:15) <Can Hastings - Last Filed: 11/03/16 14:32> Cardiology - PN: Subj Interval history: I agree with plans related to outpatient evaluation. I have discussed in detail the particulars of this case and I have examined the patient and reviewed the patient's chart both current and old. I was directly involved in the patient's evaluation and management and I completely agree with Bailey Muro NP regarding this patient's evaluation and treatment plan. Exam (Progress Note) - Constitutional Vitals: Period Temp Pulse Resp BP Sys/Monae Pulse Ox Last 24 Hr 98.1 F-100.9 F 72-87 16-20 109-168/62-86 94-98 Result/EKG - Labs CBC & BMP: 11/03/16 04:15 11/03/16 04:16 Labs: Laboratory Results - last 24 hr 11/02/16 11/03/16 11/03/16 19:54 04:15 04:16 WBC 9.7 RBC 4.46 Hgb 12.1 L Hct 35.6 L MCV 79.8 L MCH 27 MCHC 34.0 RDW 15.9 Plt Count 211 MPV 10.6 Neut % (Auto) 59.7 Lymph % (Auto) 28.8 [place] % (Auto) 8.5 Eos % (Auto) 1.8 Baso % (Auto) 0.7 Neut # (Auto) 5.8 Lymph # (Auto) 2.8 [place] # (Auto) 0.8 Eos # (Auto) 0.2 Baso # (Auto) 0.1 Immature Gran % 0.5 Nucleated RBC % 0.0 Immature Gran # 0.05 Nucleated RBCs # 0.00 Sodium 144 Potassium 3.4 L Chloride 107 Carbon Dioxide 27 Anion Gap 13.4 BUN 25 H Creatinine 1.10 GFR Calculation 83 BUN/Creatinine Ratio 22.00 H Glucose 101 Calculated Osmolality 289.8 Calcium 9.3 Magnesium 2.5 H Total Creatine Kinase 206 D CK-MB (CK-2) 1.2 Troponin I 0.035
[2016-11-03 13:42] VITALS: BP 131/62
--- NOTE | 2016-11-03 13:57 | Discharge Summary ---
Hospital Course - Hospital Course Hospital Course: 60 y/o male patient of mine. Patient was admitted for chest pain. His cardiac biomarkers remained negative. EKG was unrevealing. Echocardiogram revealed EF 50-55%, no significant valvular abnormality. Patient's chest pain occurred only once, prior to admission and he has been ambulating without chest pain, heaviness, tightness or shortness of breath. Per his Cardiology note he is stable for discharge. Discharge instructions and follow up for [facility] were in Cardiology notes. He is being followed per Dr Izaiah Matta in regards to his Stage IV prostate cancer and under Lupron therapy at this time with a stable bone scan. This was discussed with the patient prior to discharge. He will follow up in my office in two or sooner if needed. I made a point to notify nurses on discharge to his medication changes while in the hospital. Diagnosis - Discharge Diagnosis (1) Chest pain Status: Resolved (2) Palpitations Status: Resolved Specialty Discharge - Follow Up or Referrals Follow up with: Ton Jerez MD [Physician] - (per Cardiology discharge instructions ) Spencer Matta DO [Primary Care Provider] - (11/10/2016 1:15) Discharge Plan - Discharge Data Disposition: Disch To Home/Self Care Condition at Discharge: Stable Discharge Diet: heart healthy Activity: increase activity as tolerated Hygiene: no restrictions Weight Bearing at Discharge: weight bear as tolerated Driving: no restrictions Contact your physician if you experience:: Redness or swelling, Shortness of breath - Discharge Medications New Atorvastatin [Lipitor] 40 mg PO DAILY #30 tablet Nitroglycerin Sl Tab [Nitrostat] 0.4 mg SL Q5M PRN tablet PRN Reason: Chest Pain amLODIPine [Norvasc] 10 mg PO DAILY #30 tablet Aspirin EC Tab 81 mg PO DAILY tablet Potassium Chloride Cap/Tab [K Dur] 20 meq PO DAILY #30 tablet Continue Olmesartan/Hydrochlorothiazide [Benicar Hct 40-12.5 mg Tablet] 1 each PO DAILY Finasteride 5 mg PO DAILY Calcium (Carb)/Vit D 600-400 [Caltrate 600 + D] 1 tablet PO DAILY Discontinued Amlodipine/Atorvastatin [Amlodipine-Atorvast 5-40 mg] 1 each PO DAILY - Follow Up or Referral Follow Up: Ton Jerez MD [Physician] - (per Cardiology discharge instructions ) Spencer Matta DO [Primary Care Provider] - (11/10/2016 1:15) - Forms/Instructions Exam - Constitutional Vitals: Period Temp Pulse Resp BP Sys/Monae Pulse Ox Last 24 Hr 98.1 F-100.9 F 72-87 16-20 109-168/62-86 94-98 Discharge Results Labs on day of discharge: Labs from last 24 hours 11/03/16 11/03/16 11/02/16 04:16 04:15 19:54 WBC 9.7 RBC 4.46 Hgb 12.1 L Hct 35.6 L MCV 79.8 L MCH 27 MCHC 34.0 RDW 15.9 Plt Count 211 MPV 10.6 Neut % (Auto) 59.7 Lymph % (Auto) 28.8 [place] % (Auto) 8.5 Eos % (Auto) 1.8 Baso % (Auto) 0.7 Neut # (Auto) 5.8 Lymph # (Auto) 2.8 [place] # (Auto) 0.8 Eos # (Auto) 0.2 Baso # (Auto) 0.1 Immature Gran % 0.5 Nucleated RBC % 0.0 Immature Gran # 0.05 Nucleated RBCs # 0.00 Sodium 144 Potassium 3.4 L Chloride 107 Carbon Dioxide 27 Anion Gap 13.4 BUN 25 H Creatinine 1.10 GFR Calculation 83 BUN/Creatinine Ratio 22.00 H Glucose 101 Calculated Osmolality 289.8 Calcium 9.3 Magnesium 2.5 H Total Creatine Kinase 206 D CK-MB (CK-2) 1.2 Troponin I 0.035 DS: Provider Date of admission: 11/02/16 01:42 Primary care physician: Spencer Matta DO Attending physician on admission: Spencer Matta DO Consults: 11/02/16 02:57 Consult to Case Mgmt/Social Srvs [CONS] Routine Reason for Case Mgmt/Social Srvs: Discharge Planning Consult to Physician [CONS] Routine Comment: Chest pain Consulting Provider: Ton Jerez Discharging clinician: Spencer Matta DO
== END 2016-11-03 15:00 | disposition home or self-care (01) ==
LOC: N.ED 22:33 → N.EDINP 22:33 → N.TELES 11-02 02:17
PROVIDERS: ADMIT Family Medicine; ATTEND Family Medicine

== ENCOUNTER 2017-09-16 06:22 | Inpatient (IN) ==
[2017-09-16 07:00] LABS: Allen Test Positive
[2017-09-16] MEDS ORDERED: ALBUTEROL 2.5 MG/3 ML NEB RESP TX STA (07:09)
[2017-09-16 07:10] LABS: ABG Base Excess 9.4 MMOL/L (-2.5-2.5); ABG HCO3 33.2 MMOL/L (20-26); ABG Oxygen Saturation 98.6 % (95-100); ABG PH 7.212 (7.35-7.45); ABG TCO2 38.6 MMOL/L (23-27)
[2017-09-16 07:33] LABS: Basophils # 0.1 10*3/uL (0.0-0.2); Basophils % 0.7 % (0.0-0.8); Eosinophils % 0.1 % (0.00-10.9); Hematocrit 42.1 VOL% (42.0-52.0); Hemoglobin 13.1 GM/DL (14.0-18.0); Immature Granulocytes % 3.9 %; Immature Granulocytes Absolute 0.53 #; Lymphocytes # 1.9 10*3/uL (1.4-4.0); Mean Corpuscular HGB Conc 31.1 GM/DL (32-36); Mean Corpuscular Hemoglobin 27 PG (27-34); Mean Corpuscular Volume 86.4 FL (87-102); Mean Platelet Volume 10.7 FL (9.6-12.0); Monocytes # 0.5 10*3/uL (0.11-0.8); Monocytes % 3.9 % (1.7-12.7); Neutrophils # 10.5 10*3/uL (1.4-7.4); Neutrophils % 77.4 % (38.7-73.9); Platelet Count 262 T/CUMM (130-400); Red Blood Count 4.87 MC/CUMM (3.8-5.5); Red Cell Distribution Width 15.9 % (9.3-17.3); White Blood Count 13.5 T/CUMM (4-12)
[2017-09-16 07:58] LABS: Albumin 3.5 G/DL (3.4-5.0); Bilirubin,Total 0.6 MG/DL (0.2-1.0); Calcium 9.4 MG/DL (8.5-10.1); Osmolality,Calculated 296.7 MOS/KG (273-304); Potassium 3.7 MMOL/L (3.5-5.1)
[2017-09-16 08:01] LABS: PT Patient Result 10.2 SECS; Partial Thromboplastin Time 25.7 SECS (0-40)
[2017-09-16 08:08] LABS: Platelet Estimate Normal
[2017-09-16 08:11] LABS: Troponin I Only 0.042 NG/ML (0.00-0.045)
[2017-09-16] MEDS ORDERED: methylPREDNISolone SOD SUC 125 MG/2 ML VIAL IV STA (08:19)
[2017-09-16] MEDS ORDERED: PIPERACILLIN/TAZOBACTAM 3,375 MG in SODIUM CHLORIDE 0.9% 100 ML IV STA (08:19)
[2017-09-16] MEDS ORDERED: PROPOFOL 1,000 MG/100 ML BOTTLE IV ONE (08:52)
[2017-09-16] MEDS ORDERED: ALBUTEROL NEB SOLN 5 MG/ML 20 ML/BOTTLE CONT NEB STA (08:54)
[2017-09-16] MEDS ORDERED: ETOMIDATE 20 MG/10 ML VIAL IV ONE (09:01)
[2017-09-16 09:38] LABS: ABG Base Excess 8.1 MMOL/L (-2.5-2.5); ABG HCO3 31.9 MMOL/L (20-26); ABG PH 7.312 (7.35-7.45); ABG TCO2 33.5 MMOL/L (23-27)
[2017-09-16 09:39] LABS: ABG PCO2 74.3 MM HG (35-48)
[2017-09-16] MEDS ORDERED: VECURONIUM 10 MG VIAL IV ONE ×2 (10:22→11:33)
[2017-09-16 10:35] LABS: Amorphous Crystals,Urine Occasional /HPF (Few); Bacteria,Urine Occasional /HPF (Few); Granular Casts,Urine 2 /LPF (0-1); Hyaline Casts,Urine 8 /LPF (0-3); Mucus,Urine Occasional /LPF (Occasional); RBC,Urine 1 /HPF (0-4); WBC,Urine 1 /HPF (0-6)
[2017-09-16 10:37] LABS: Apearance,Urine CLEAR (Clear); Bilirubin,Urine Negative (Negative); Blood, Urine Small mg/dL (Negative); Glucose,Urine (UA) Negative (Negative); Ketones,Urine Negative (Negative); Nitrite,Urine Negative (Negative); Protein,Urine Negative; Urine Color Yellow (Yellow); Urine Specific Gravity 1.029 (1.001-1.035); Urine Urobilinogen < 2.0 EU/DL (0.2-1.0)
[2017-09-16] MEDS: PROPOFOL 1,000 MG/100 ML BOTTLE IV SCH ×4 (10:54→22:30)
[2017-09-16] MEDS ORDERED: ONDANSETRON 4 MG/2 ML VIAL IV PRN (11:00)
[2017-09-16] MEDS ORDERED: ACETAMINOPHEN 325 MG TABLET PO PRN (11:00)
[2017-09-16] MEDS ORDERED: MIDAZOLAM 2 MG/2 ML VIAL IV ONE (12:25)
[2017-09-16] MEDS ORDERED: MIDAZOLAM 10 MG/2 ML VIAL ONE (12:30)
[2017-09-16] MEDS: ENOXAPARIN 40 MG/0.4 ML SYRINGE SUBCUT SCH (13:05)
[2017-09-16] MEDS: cefTRIAXone 1,000 MG in SYRINGE 1 EACH IV SCH (13:05)
[2017-09-16] MEDS: methylPREDNISolone SOD SUC 40 MG/1 ML VIAL IV SCH ×2 (13:05→21:27)
[2017-09-16 13:33] LABS: ABG Base Excess 9.1 MMOL/L (-2.5-2.5); ABG HCO3 32.9 MMOL/L (20-26); ABG Oxygen Saturation 99.4 % (95-100); ABG PCO2 57.4 MM HG (35-48); ABG PH 7.404 (7.35-7.45); ABG TCO2 31.9 MMOL/L (23-27); Allen Test Positive; Pt O2 Delivery Device Ventilator
[2017-09-16] MEDS: ALBUTEROL/IPRATROPIUM 3 ML NEB RESP TX SCH ×2 (13:33→19:41)
[2017-09-16] MEDS: SODIUM CHLORIDE 0.9% 1,000 ML IV SCH (16:36)
[2017-09-16] MEDS: CARVEDILOL 6.25 MG TABLET PO SCH (21:28)
[2017-09-16] MEDS: POTASSIUM CHLORIDE 20 MEQ TABLET PO SCH (21:28)
[2017-09-16] MEDS: DOCUSATE SODIUM 100 MG CAPSULE PO SCH (21:28)
[2017-09-16] MEDS: VALSARTAN 80 MG TABLET PO SCH (21:28)
[2017-09-17] MEDS: SODIUM CHLORIDE 0.9% 1,000 ML IV SCH ×2 (00:15→05:49)
[2017-09-17] MEDS: ALBUTEROL/IPRATROPIUM 3 ML NEB RESP TX SCH ×4 (01:03→19:15)
[2017-09-17] MEDS: methylPREDNISolone SOD SUC 40 MG/1 ML VIAL IV SCH ×3 (03:23→22:02)
[2017-09-17] MEDS: PROPOFOL 1,000 MG/100 ML BOTTLE IV SCH ×6 (04:00→23:58)
[2017-09-17 04:21] LABS: ABG Base Excess 5.8 MMOL/L (-2.5-2.5); ABG HCO3 29.7 MMOL/L (20-26); ABG Oxygen Saturation 98.4 % (95-100); ABG PCO2 49.2 MM HG (35-48); ABG PH 7.416 (7.35-7.45); ABG TCO2 27.4 MMOL/L (23-27); Allen Test Positive; Pt O2 Delivery Device Ventilator
[2017-09-17 05:31] LABS: Basophils % 0.1 % (0.0-0.8); Hematocrit 32.8 VOL% (42.0-52.0); Hemoglobin 10.6 GM/DL (14.0-18.0); Immature Granulocytes % 1.3 %; Immature Granulocytes Absolute 0.16 #; Lymphocytes # 1.3 10*3/uL (1.4-4.0); Lymphocytes % 10.7 % (21.2-54.2); Mean Corpuscular HGB Conc 32.3 GM/DL (32-36); Mean Corpuscular Hemoglobin 27 PG (27-34); Mean Corpuscular Volume 82.8 FL (87-102); Mean Platelet Volume 10.8 FL (9.6-12.0); Monocytes # 0.6 10*3/uL (0.11-0.8); Monocytes % 4.7 % (1.7-12.7); Neutrophils # 10.4 10*3/uL (1.4-7.4); Neutrophils % 83.2 % (38.7-73.9); Platelet Count 209 T/CUMM (130-400); Red Blood Count 3.96 MC/CUMM (3.8-5.5); Red Cell Distribution Width 15.4 % (9.3-17.3); White Blood Count 12.5 T/CUMM (4-12)
[2017-09-17 05:51] LABS: Osmolality,Calculated 299.8 MOS/KG (273-304); Potassium 3.7 MMOL/L (3.5-5.1)
[2017-09-17] MEDS: VALSARTAN 80 MG TABLET PO SCH ×2 (08:06→22:02)
[2017-09-17] MEDS: POTASSIUM CHLORIDE 20 MEQ TABLET PO SCH ×2 (08:06→22:02)
[2017-09-17] MEDS: ATORVASTATIN 40 MG TABLET PO SCH (08:06)
[2017-09-17] MEDS: PANTOPRAZOLE 40 MG TABLET PO SCH (08:07)
[2017-09-17] MEDS: CARVEDILOL 6.25 MG TABLET PO SCH ×2 (08:07→22:02)
[2017-09-17] MEDS: DOCUSATE SODIUM 100 MG CAPSULE PO SCH ×2 (09:33→22:02)
[2017-09-17] MEDS: ENOXAPARIN 40 MG/0.4 ML SYRINGE SUBCUT SCH (11:23)
[2017-09-17] MEDS: cefTRIAXone 1,000 MG in SYRINGE 1 EACH IV SCH (12:42)
[2017-09-17] MEDS ORDERED: GLUCAGON 1 MG VIAL IM PRN ×2 (16:44→18:53)
[2017-09-17] MEDS ORDERED: DEXTROSE 50% 25 GM/50 ML VIAL IV PRN ×2 (16:44→18:53)
[2017-09-17] MEDS ORDERED: INSULIN REGULAR 100 UNIT/ML SUBCUT SCH (21:00)
[2017-09-18] MEDS: ALBUTEROL/IPRATROPIUM 3 ML NEB RESP TX SCH ×4 (00:28→19:04)
[2017-09-18] MEDS: INSULIN REGULAR 100 UNIT/ML SUBCUT SCH ×5 (01:07→23:57)
[2017-09-18] MEDS: SODIUM CHLORIDE 0.9% 1,000 ML IV SCH ×5 (01:07→14:24)
[2017-09-18] MEDS: PROPOFOL 1,000 MG/100 ML BOTTLE IV SCH ×6 (02:50→23:49)
[2017-09-18] MEDS: methylPREDNISolone SOD SUC 40 MG/1 ML VIAL IV SCH ×2 (04:20→16:13)
[2017-09-18 04:43] LABS: ABG Base Excess 3.5 MMOL/L (-2.5-2.5); ABG HCO3 27.6 MMOL/L (20-26); ABG Oxygen Saturation 98.6 % (95-100); ABG PH 7.413 (7.35-7.45); Allen Test Positive; Pt O2 Delivery Device Ventilator
[2017-09-18] MEDS: ATORVASTATIN 40 MG TABLET PO SCH (08:47)
[2017-09-18] MEDS: POTASSIUM CHLORIDE 20 MEQ TABLET PO SCH ×2 (08:47→21:54)
[2017-09-18] MEDS: DOCUSATE SODIUM 100 MG CAPSULE PO SCH ×2 (08:48→21:55)
[2017-09-18] MEDS: CARVEDILOL 6.25 MG TABLET PO SCH ×2 (08:48→21:54)
[2017-09-18] MEDS: VALSARTAN 80 MG TABLET PO SCH ×2 (08:48→21:55)
[2017-09-18] MEDS: PANTOPRAZOLE 40 MG TABLET PO SCH (08:48)
[2017-09-18] MEDS: ENOXAPARIN 40 MG/0.4 ML SYRINGE SUBCUT SCH (12:32)
[2017-09-18] MEDS: cefTRIAXone 1,000 MG in SYRINGE 1 EACH IV SCH (12:34)
[2017-09-19] MEDS: ALBUTEROL/IPRATROPIUM 3 ML NEB RESP TX SCH ×4 (01:22→20:04)
[2017-09-19] MEDS: PROPOFOL 1,000 MG/100 ML BOTTLE IV SCH ×7 (02:42→22:03)
[2017-09-19 04:30] LABS: Basophils % 0.1 % (0.0-0.8); Hemoglobin 10.5 GM/DL (14.0-18.0); Immature Granulocytes % 1.8 %; Immature Granulocytes Absolute 0.22 #; Lymphocytes # 0.8 10*3/uL (1.4-4.0); Lymphocytes % 6.8 % (21.2-54.2); Mean Corpuscular HGB Conc 31.8 GM/DL (32-36); Mean Corpuscular Hemoglobin 27 PG (27-34); Mean Corpuscular Volume 85.7 FL (87-102); Mean Platelet Volume 10.7 FL (9.6-12.0); Monocytes # 0.8 10*3/uL (0.11-0.8); Monocytes % 6.8 % (1.7-12.7); Neutrophils # 10.3 10*3/uL (1.4-7.4); Neutrophils % 84.5 % (38.7-73.9); Platelet Count 192 T/CUMM (130-400); Red Blood Count 3.85 MC/CUMM (3.8-5.5); Red Cell Distribution Width 16.4 % (9.3-17.3); White Blood Count 12.2 T/CUMM (4-12)
[2017-09-19] MEDS: SODIUM CHLORIDE 0.9% 1,000 ML IV SCH ×2 (04:46→17:47)
[2017-09-19 04:53] LABS: ABG Base Excess 2.3 MMOL/L (-2.5-2.5); ABG HCO3 26.4 MMOL/L (20-26); ABG Oxygen Saturation 96.9 % (95-100); ABG PCO2 45.3 MM HG (35-48); ABG PH 7.396 (7.35-7.45); ABG TCO2 23.9 MMOL/L (23-27); Allen Test Positive; Pt O2 Delivery Device Ventilator
[2017-09-19] MEDS: methylPREDNISolone SOD SUC 40 MG/1 ML VIAL IV SCH ×3 (04:55→21:36)
[2017-09-19] MEDS: INSULIN REGULAR 100 UNIT/ML SUBCUT SCH ×4 (05:08→23:38)
[2017-09-19 05:13] LABS: Calcium 8.3 MG/DL (8.5-10.1); Osmolality,Calculated 307.6 MOS/KG (273-304); Potassium 3.8 MMOL/L (3.5-5.1)
[2017-09-19] MEDS: PANTOPRAZOLE 40 MG TABLET PO SCH (09:36)
[2017-09-19] MEDS: DOCUSATE SODIUM 100 MG CAPSULE PO SCH ×2 (09:36→21:35)
[2017-09-19] MEDS: CARVEDILOL 6.25 MG TABLET PO SCH ×2 (09:37→21:35)
[2017-09-19] MEDS: POTASSIUM CHLORIDE 20 MEQ TABLET PO SCH ×2 (09:37→21:36)
[2017-09-19] MEDS: VALSARTAN 80 MG TABLET PO SCH ×2 (09:37→21:58)
[2017-09-19] MEDS: ATORVASTATIN 40 MG TABLET PO SCH (09:37)
[2017-09-19] MEDS: ENOXAPARIN 40 MG/0.4 ML SYRINGE SUBCUT SCH (11:21)
[2017-09-19] MEDS: cefTRIAXone 1,000 MG in SYRINGE 1 EACH IV SCH (13:16)
[2017-09-20] MEDS: ALBUTEROL/IPRATROPIUM 3 ML NEB RESP TX SCH ×4 (00:21→19:34)
[2017-09-20] MEDS: PROPOFOL 1,000 MG/100 ML BOTTLE IV SCH ×8 (01:03→22:36)
[2017-09-20 03:46] LABS: ABG Base Excess 1.8 MMOL/L (-2.5-2.5); ABG Oxygen Saturation 96.3 % (95-100); ABG PCO2 43.1 MM HG (35-48); ABG PH 7.402 (7.35-7.45); ABG PO2 78.3 MM HG (80-95); ABG TCO2 24.1 MMOL/L (23-27); Allen Test Positive; Pt O2 Delivery Device Ventilator
[2017-09-20] MEDS: SODIUM CHLORIDE 0.9% 1,000 ML IV SCH (03:50)
[2017-09-20] MEDS: INSULIN REGULAR 100 UNIT/ML SUBCUT SCH ×3 (05:52→18:17)
[2017-09-20 06:19] LABS: Basophils % 0.2 % (0.0-0.8); Hematocrit 34.6 VOL% (42.0-52.0); Hemoglobin 11.2 GM/DL (14.0-18.0); Immature Granulocytes % 4.1 %; Immature Granulocytes Absolute 0.44 #; Lymphocytes % 9.6 % (21.2-54.2); Mean Corpuscular HGB Conc 32.4 GM/DL (32-36); Mean Corpuscular Hemoglobin 27 PG (27-34); Mean Corpuscular Volume 84.6 FL (87-102); Mean Platelet Volume 11.5 FL (9.6-12.0); Monocytes # 0.6 10*3/uL (0.11-0.8); Monocytes % 5.7 % (1.7-12.7); Neutrophils # 8.6 10*3/uL (1.4-7.4); Neutrophils % 80.4 % (38.7-73.9); Platelet Count 177 T/CUMM (130-400); Red Blood Count 4.09 MC/CUMM (3.8-5.5); White Blood Count 10.7 T/CUMM (4-12)
[2017-09-20] MEDS: methylPREDNISolone SOD SUC 40 MG/1 ML VIAL IV SCH ×3 (06:27→21:56)
[2017-09-20 06:45] LABS: Osmolality,Calculated 306.4 MOS/KG (273-304); Potassium 4.4 MMOL/L (3.5-5.1)
[2017-09-20] MEDS: VALSARTAN 80 MG TABLET PO SCH ×2 (09:21→21:56)
[2017-09-20] MEDS: POTASSIUM CHLORIDE 20 MEQ TABLET PO SCH ×2 (09:21→21:56)
[2017-09-20] MEDS: ATORVASTATIN 40 MG TABLET PO SCH (09:21)
[2017-09-20] MEDS: CARVEDILOL 6.25 MG TABLET PO SCH ×2 (09:22→21:56)
[2017-09-20] MEDS: PANTOPRAZOLE 40 MG TABLET PO SCH (09:22)
[2017-09-20] MEDS: DOCUSATE SODIUM 100 MG CAPSULE PO SCH ×2 (09:22→21:56)
[2017-09-20] MEDS: cefTRIAXone 1,000 MG in SYRINGE 1 EACH IV SCH (16:09)
[2017-09-20] MEDS: ENOXAPARIN 40 MG/0.4 ML SYRINGE SUBCUT SCH (16:09)
[2017-09-20] MEDS: LORazepam 2 MG/1 ML VIAL IV PRN (19:30)
[2017-09-21] MEDS: INSULIN REGULAR 100 UNIT/ML SUBCUT SCH ×4 (00:43→18:14)
[2017-09-21] MEDS: SODIUM CHLORIDE 0.9% 1,000 ML IV SCH ×4 (00:44→23:54)
[2017-09-21] MEDS: PROPOFOL 1,000 MG/100 ML BOTTLE IV SCH ×9 (00:47→22:48)
[2017-09-21] MEDS: ALBUTEROL/IPRATROPIUM 3 ML NEB RESP TX SCH ×5 (00:59→19:02)
[2017-09-21 03:14] LABS: ABG HCO3 25.3 MMOL/L (20-26); ABG Oxygen Saturation 98.8 % (95-100); ABG PH 7.482 (7.35-7.45); ABG TCO2 21.6 MMOL/L (23-27); Allen Test Positive; Pt O2 Delivery Device Ventilator
[2017-09-21 04:23] LABS: ABG Base Excess 0.5 MMOL/L (-2.5-2.5); ABG HCO3 24.9 MMOL/L (20-26); ABG Oxygen Saturation 97.9 % (95-100); ABG PCO2 36.9 MM HG (35-48); ABG PH 7.432 (7.35-7.45); ABG TCO2 22.2 MMOL/L (23-27); Allen Test Positive; Pt O2 Delivery Device Ventilator
[2017-09-21 05:52] LABS: Prealbumin 37.6 MG/DL (20-40)
[2017-09-21] MEDS: methylPREDNISolone SOD SUC 40 MG/1 ML VIAL IV SCH ×3 (06:00→21:15)
[2017-09-21] MEDS: VALSARTAN 80 MG TABLET PO SCH ×2 (08:44→21:18)
[2017-09-21] MEDS: DOCUSATE SODIUM 100 MG CAPSULE PO SCH ×2 (08:45→21:18)
[2017-09-21] MEDS: ATORVASTATIN 40 MG TABLET PO SCH (08:45)
[2017-09-21] MEDS: POTASSIUM CHLORIDE 20 MEQ TABLET PO SCH ×2 (08:45→21:18)
[2017-09-21] MEDS: PANTOPRAZOLE 40 MG TABLET PO SCH (08:45)
[2017-09-21] MEDS: LORazepam 2 MG/1 ML VIAL IV PRN ×2 (11:30→20:20)
[2017-09-21] MEDS: ENOXAPARIN 40 MG/0.4 ML SYRINGE SUBCUT SCH (11:35)
[2017-09-21] MEDS: cefTRIAXone 1,000 MG in SYRINGE 1 EACH IV SCH (13:37)
[2017-09-21] MEDS: CARVEDILOL 6.25 MG TABLET PO SCH ×2 (18:16→21:18)
[2017-09-21] MEDS ORDERED: hydrALAZINE 20 MG/1 ML VIAL IV PRN (19:31)
[2017-09-21] MEDS: MORPHINE 4 MG/1 ML VIAL IV PRN (21:18)
[2017-09-22] MEDS: ALBUTEROL/IPRATROPIUM 3 ML NEB RESP TX SCH ×6 (00:10→20:04)
[2017-09-22] MEDS: INSULIN REGULAR 100 UNIT/ML SUBCUT SCH ×4 (00:17→18:30)
[2017-09-22] MEDS: PROPOFOL 1,000 MG/100 ML BOTTLE IV SCH ×4 (01:48→10:55)
[2017-09-22 04:57] LABS: ABG Base Excess -0.8 MMOL/L (-2.5-2.5); ABG HCO3 24.5 MMOL/L (20-26); ABG Oxygen Saturation 96.2 % (95-100); ABG PCO2 43.3 MM HG (35-48); ABG PH 7.371 (7.35-7.45); ABG PO2 88.7 MM HG (80-95); ABG TCO2 25.9 MMOL/L (23-27); Allen Test Positive; Pt O2 Delivery Device Ventilator
[2017-09-22] MEDS: methylPREDNISolone SOD SUC 40 MG/1 ML VIAL IV SCH ×3 (05:20→18:36)
[2017-09-22] MEDS: MORPHINE 4 MG/1 ML VIAL IV PRN ×2 (05:20→22:40)
[2017-09-22 06:04] LABS: Calcium 8.5 MG/DL (8.5-10.1); Osmolality,Calculated 310.1 MOS/KG (273-304); Potassium 4.6 MMOL/L (3.5-5.1)
[2017-09-22] MEDS: SODIUM CHLORIDE 0.9% 1,000 ML IV SCH ×2 (06:41→13:15)
[2017-09-22 07:54] LABS: Basophils % 0.3 % (0.0-0.8); Hematocrit 36.6 VOL% (42.0-52.0); Hemoglobin 11.2 GM/DL (14.0-18.0); Immature Granulocytes % 6.5 %; Immature Granulocytes Absolute 0.65 #; Lymphocytes # 0.8 10*3/uL (1.4-4.0); Lymphocytes % 8.3 % (21.2-54.2); Mean Corpuscular HGB Conc 30.6 GM/DL (32-36); Mean Corpuscular Hemoglobin 27 PG (27-34); Mean Platelet Volume 12.2 FL (9.6-12.0); Monocytes # 0.5 10*3/uL (0.11-0.8); Monocytes % 4.9 % (1.7-12.7); Neutrophils # 8.1 10*3/uL (1.4-7.4); Platelet Count 146 T/CUMM (130-400); Red Blood Count 4.16 MC/CUMM (3.8-5.5); Red Cell Distribution Width 17.1 % (9.3-17.3); White Blood Count 10.1 T/CUMM (4-12)
[2017-09-22] MEDS: PANTOPRAZOLE 40 MG TABLET PO SCH (08:06)
[2017-09-22] MEDS: VALSARTAN 80 MG TABLET PO SCH ×2 (08:06→21:48)
[2017-09-22] MEDS: ATORVASTATIN 40 MG TABLET PO SCH (08:08)
[2017-09-22 08:18] LABS: Band Neutrophils 1 % (0-10); Hypochromasia Slight; Lymphocytes 4 % (20-55); Platelet Estimate Normal; Segmented Neutrophils 90 % (50-85); Total Cells Counted 100
[2017-09-22] MEDS: DOCUSATE SODIUM 100 MG CAPSULE PO SCH ×2 (09:22→21:48)
[2017-09-22] MEDS: POTASSIUM CHLORIDE 20 MEQ TABLET PO SCH ×2 (09:23→21:48)
[2017-09-22] MEDS: LORazepam 2 MG/1 ML VIAL IV PRN ×3 (09:55→23:23)
[2017-09-22] MEDS: CARVEDILOL 6.25 MG TABLET PO SCH (11:02)
[2017-09-22] MEDS: ENOXAPARIN 40 MG/0.4 ML SYRINGE SUBCUT SCH (11:02)
[2017-09-22] MEDS: cefTRIAXone 1,000 MG in SYRINGE 1 EACH IV SCH (13:11)
[2017-09-22] MEDS ORDERED: METOPROLOL TARTRATE 5 MG/5 ML VIAL IV ONE ×4 (14:31→19:34)
[2017-09-22] MEDS ORDERED: LORazepam 2 MG/1 ML VIAL IV ONE (14:39)
[2017-09-22] MEDS ORDERED: HALOPERIDOL 5 MG/ML AMP IM ONE (19:47)
[2017-09-22] MEDS: CARVEDILOL 12.5 MG TABLET PO SCH (21:48)
[2017-09-22] MEDS ORDERED: hydrALAZINE 20 MG/1 ML VIAL IV ONE (23:00)
[2017-09-22] MEDS ORDERED: NITROPRUSSIDE 100 MG in DEXTROSE 5% 250 ML IV PRN (23:04)
[2017-09-23] MEDS: ALBUTEROL/IPRATROPIUM 3 ML NEB RESP TX SCH ×7 (00:10→23:06)
[2017-09-23] MEDS: INSULIN REGULAR 100 UNIT/ML SUBCUT SCH ×4 (00:11→19:16)
[2017-09-23] MEDS: methylPREDNISolone SOD SUC 40 MG/1 ML VIAL IV SCH ×4 (01:09→19:24)
[2017-09-23] MEDS: SODIUM CHLORIDE 0.9% 1,000 ML IV SCH ×2 (02:29)
[2017-09-23] MEDS: MORPHINE 4 MG/1 ML VIAL IV PRN ×2 (02:56→14:36)
[2017-09-23] MEDS: hydrALAZINE 20 MG/1 ML VIAL IV PRN ×2 (04:07→09:14)
[2017-09-23 04:47] LABS: ABG Base Excess -0.5 MMOL/L (-2.5-2.5); ABG HCO3 25.3 MMOL/L (20-26); ABG Oxygen Saturation 93.9 % (95-100); ABG PCO2 45.9 MM HG (35-48); ABG PO2 72.3 MM HG (80-95); ABG TCO2 26.8 MMOL/L (23-27); Allen Test Positive; Pt O2 Delivery Device BIPAP
[2017-09-23 07:06] LABS: Albumin 2.5 G/DL (3.4-5.0); Bilirubin,Total 0.5 MG/DL (0.2-1.0); Calcium 8.6 MG/DL (8.5-10.1); Osmolality,Calculated 304.7 MOS/KG (273-304); Potassium 4.3 MMOL/L (3.5-5.1); Total Protein 6.8 G/DL (6.4-8.3)
[2017-09-23 08:01] LABS: Hypochromasia 1+; Polychromasia Few
[2017-09-23 08:02] LABS: Platelet Estimate Normal
[2017-09-23 08:08] LABS: Basophils # 0.2 10*3/uL (0.0-0.2); Basophils % 0.7 % (0.0-0.8); Hematocrit 44.2 VOL% (42.0-52.0); Immature Granulocytes % 10.1 %; Immature Granulocytes Absolute 2.33 #; Lymphocytes # 1.2 10*3/uL (1.4-4.0); Mean Corpuscular HGB Conc 31.9 GM/DL (32-36); Mean Corpuscular Hemoglobin 27 PG (27-34); Mean Corpuscular Volume 84.5 FL (87-102); Monocytes # 1.8 10*3/uL (0.11-0.8); Monocytes % 7.8 % (1.7-12.7); NRBC # 0.04 10*3/uL; Neutrophils # 17.7 10*3/uL (1.4-7.4); Neutrophils % 76.4 % (38.7-73.9); Platelet Count 196 T/CUMM (130-400); Red Blood Count 5.23 MC/CUMM (3.8-5.5); Red Cell Distribution Width 17.4 % (9.3-17.3); White Blood Count 23.2 T/CUMM (4-12)
[2017-09-23 08:09] LABS: Hemoglobin 14.1 GM/DL (14.0-18.0)
[2017-09-23 08:37] LABS: Band Neutrophils 3 % (0-10); Lymphocytes 5 % (20-55); Nucleated Red Blood Cells 1 (0-5); Segmented Neutrophils 83 % (50-85); Total Cells Counted 100
[2017-09-23] MEDS: ATORVASTATIN 40 MG TABLET PO SCH (08:58)
[2017-09-23] MEDS: POTASSIUM CHLORIDE 20 MEQ TABLET PO SCH ×2 (08:58→21:01)
[2017-09-23] MEDS: CARVEDILOL 12.5 MG TABLET PO SCH ×2 (08:58→21:01)
[2017-09-23] MEDS: VALSARTAN 80 MG TABLET PO SCH ×2 (08:58→21:01)
[2017-09-23] MEDS: DOCUSATE SODIUM 100 MG CAPSULE PO SCH ×2 (08:58→21:02)
[2017-09-23] MEDS: PANTOPRAZOLE 40 MG TABLET PO SCH (08:58)
[2017-09-23] MEDS: HALOPERIDOL 5 MG/ML AMP IM SCH ×2 (08:59→21:02)
[2017-09-23 09:37] LABS: ABG Base Excess -1.7 MMOL/L (-2.5-2.5); ABG HCO3 27.8 MMOL/L (20-26); ABG Oxygen Saturation 93.9 % (95-100); ABG PCO2 68.9 MM HG (35-48); ABG PH 7.223 (7.35-7.45); ABG PO2 80.9 MM HG (80-95); ABG TCO2 29.9 MMOL/L (23-27)
[2017-09-23] MEDS: ENOXAPARIN 40 MG/0.4 ML SYRINGE SUBCUT SCH (11:30)
[2017-09-23] MEDS: ARFORMOTEROL 15 MCG/2 ML NEB RESP TX SCH ×2 (11:40→19:08)
[2017-09-23] MEDS: cefTRIAXone 1,000 MG in SYRINGE 1 EACH IV SCH (12:45)
[2017-09-23] MEDS: LORazepam 2 MG/1 ML VIAL IV PRN (16:13)
[2017-09-24] MEDS: INSULIN REGULAR 100 UNIT/ML SUBCUT SCH ×4 (00:01→18:13)
[2017-09-24] MEDS: methylPREDNISolone SOD SUC 40 MG/1 ML VIAL IV SCH ×4 (01:15→18:56)
[2017-09-24] MEDS: LORazepam 2 MG/1 ML VIAL IV PRN (01:17)
[2017-09-24] MEDS: MORPHINE 4 MG/1 ML VIAL IV PRN ×4 (01:20→22:51)
[2017-09-24] MEDS: ALBUTEROL/IPRATROPIUM 3 ML NEB RESP TX SCH ×4 (02:36→16:00)
[2017-09-24 05:29] LABS: Basophils % 0.2 % (0.0-0.8); Hematocrit 43.1 VOL% (42.0-52.0); Hemoglobin 13.7 GM/DL (14.0-18.0); Immature Granulocytes % 5.6 %; Immature Granulocytes Absolute 1.03 #; Lymphocytes # 0.7 10*3/uL (1.4-4.0); Lymphocytes % 3.8 % (21.2-54.2); Mean Corpuscular HGB Conc 31.8 GM/DL (32-36); Mean Corpuscular Hemoglobin 27 PG (27-34); Mean Corpuscular Volume 85.7 FL (87-102); Mean Platelet Volume 11.4 FL (9.6-12.0); Monocytes # 1.1 10*3/uL (0.11-0.8); Monocytes % 6.1 % (1.7-12.7); NRBC # 0.03 10*3/uL; Neutrophils # 15.6 10*3/uL (1.4-7.4); Neutrophils % 84.3 % (38.7-73.9); Platelet Count 179 T/CUMM (130-400); Red Blood Count 5.03 MC/CUMM (3.8-5.5); Red Cell Distribution Width 17.4 % (9.3-17.3); White Blood Count 18.5 T/CUMM (4-12)
[2017-09-24 06:06] LABS: Albumin 2.2 G/DL (3.4-5.0); Bilirubin,Total 0.6 MG/DL (0.2-1.0); Calcium 9.2 MG/DL (8.5-10.1); Osmolality,Calculated 317.7 MOS/KG (273-304); Potassium 4.5 MMOL/L (3.5-5.1); Total Protein 6.4 G/DL (6.4-8.3)
[2017-09-24 06:39] LABS: Band Neutrophils 2 % (0-10); Lymphocytes 3 % (20-55); Microcytosis Slight; Platelet Estimate Adequate; Segmented Neutrophils 91 % (50-85); Total Cells Counted 100
[2017-09-24] MEDS: ARFORMOTEROL 15 MCG/2 ML NEB RESP TX SCH (08:00)
[2017-09-24] MEDS: DOCUSATE SODIUM 100 MG CAPSULE PO SCH ×2 (10:10→21:20)
[2017-09-24] MEDS: POTASSIUM CHLORIDE 20 MEQ TABLET PO SCH ×2 (10:11→21:33)
[2017-09-24] MEDS: ATORVASTATIN 40 MG TABLET PO SCH (10:11)
[2017-09-24] MEDS: PANTOPRAZOLE 40 MG TABLET PO SCH (10:12)
[2017-09-24] MEDS: CARVEDILOL 12.5 MG TABLET PO SCH ×2 (10:12→21:18)
[2017-09-24] MEDS: VALSARTAN 80 MG TABLET PO SCH ×2 (10:12→21:19)
[2017-09-24] MEDS: ENOXAPARIN 40 MG/0.4 ML SYRINGE SUBCUT SCH (11:08)
[2017-09-24] MEDS: cefTRIAXone 1,000 MG in SYRINGE 1 EACH IV SCH (13:34)
[2017-09-24] MEDS: HALOPERIDOL 5 MG/ML AMP IM SCH ×2 (13:34→21:17)
[2017-09-24] MEDS ORDERED: FAT EMULSION 20% 250 ML IV SCH (14:00)
[2017-09-24] MEDS ORDERED: TRACE ELEMENTS (5) 1 ML, MULTIVITAMIN INJ 10 ML in AMINO ACIDS/DEXT/LYTES 4.25-5% 2,000 ML IV SCH (17:00)
[2017-09-24 23:06] VITALS: BP 56/24
[2017-09-25] MEDS: ARFORMOTEROL 15 MCG/2 ML NEB RESP TX SCH (06:40)
[2017-09-25] MEDS: ALBUTEROL/IPRATROPIUM 3 ML NEB RESP TX SCH (06:40)
== END 2017-09-24 23:19 | disposition expired | DRG 207 ==
LOC: N.ED 06:22 → N.EDINP 09:03 → N.ICU 10:34
PROVIDERS: ADMIT Family Medicine; ATTEND Family Medicine